=== PATIENT | female | born 2000 | race Caucasian/White ===

== ENCOUNTER 2020-02-21 21:24 | Emergency (ER) | payer BC ==
[2020-02-21] MEDS ORDERED: Ondansetron 4 MG Tab.DIS PO ONE (21:46)
[2020-02-21] MEDS ORDERED: Ketorolac 60 MG/2 ML SDV IM ONE (21:46)
--- NOTE | 2020-02-21 21:51 | EDM.PDOC ---
ED HPI GENERAL MEDICAL PROBLEM - General Chief Complaint: Genitourinary Problem Stated Complaint: POSS UTI AND BACK PAIN Time Seen by Provider: 02/21/20 21:28 Source of Information: Reports: Patient History Limitations: Reports: No Limitations - History of Present Illness INITIAL COMMENTS - FREE TEXT/NARRATIVE: Patient is a 19-year-old female who presents with complaints of right-sided back pain, nausea, and frequency of urination. Patient states approximately 1 month ago she was treated for urinary tract infection. At the time of that diagnosis she did have burning with urination, however that is since resolved. Patient is not sure what antibiotic she was treated with at that time. Patient states that she is been voiding frequently for the past month. She does have a history of chronic back pain from playing sports. States that she can normally get the back pain to go away with a hot shower. Tonight she developed back pain around 6 PM. Pain did not improve with a hot shower. About an hour ago she is developed some nausea states that she has vomited a couple times. She has not had any fever or chills. Denies any blood in her urine. Right Lower Back Pain Score (Numeric/FACES): 8 - Related Data Allergies Allergy/AdvReac Type Severity Reaction Status Date / Time No Known Allergies Allergy Verified 02/21/20 21:38 Home Meds: Home Meds Cefdinir [Omnicef] 300 mg PO BID 14 Days #27 cap 02/21/20 [Rx] Past Medical History - Past Health History Medical/Surgical History: Denies Medical/Surgical History - Past Surgical History HEENT Surgical History: Reports: Oral Surgery Social & Family History - Tobacco Use Smoking Status *Q: Never Smoker - Caffeine Use Caffeine Use: Reports: Coffee ED ROS GENERAL - Review of Systems Review Of Systems: Comprehensive ROS is negative, except as noted in HPI. ED EXAM, RENAL/ - Physical Exam Exam: See Below Exam Limited By: No Limitations General Appearance: Alert, WD/WN, No Apparent Distress Respiratory/Chest: No Respiratory Distress, Lungs Clear, Normal Breath Sounds, No Accessory Muscle Use, Chest Non-Tender Cardiovascular: Normal Peripheral Pulses, Regular Rate, Rhythm, No Edema, No Gallop, No JVD, No Murmur, No Rub GI/Abdominal: Normal Bowel Sounds, Soft, Non-Tender, No Organomegaly, No Distention, No Abnormal Bruit, No Mass Back Exam: Normal Inspection, Full Range of Motion, Other (Patient does have tenderness to palpation of the right low back directly above the iliac crest. Area is tender to light palpation. She has no CVA tenderness.). No: CVA Tenderness (L), CVA Tenderness (R) Neurological: Alert, Oriented, CN II-XII Intact, Normal Cognition, Normal Gait, Normal Reflexes, No Motor/Sensory Deficits Psychiatric: Normal Affect, Normal Mood Skin Exam: Warm, Dry, Intact, Normal Color, No Rash Course - Vital Signs Last Recorded V/S: Last Vital Signs Temp 97.1 F 02/21/20 21:35 Pulse 96 02/21/20 21:35 Resp 18 02/21/20 21:35 BP 122/80 02/21/20 21:35 Pulse Ox 98 02/21/20 21:35 - Orders/Labs/Meds Orders: Active Orders 24 hr Category Date Time Status Strain Urine [RC] ASDIRECTED Care 02/21/20 23:13 Active CULTURE URINE [RM] Stat Lab 02/21/20 21:02 Results Labs: Laboratory Tests 02/21/20 02/21/20 02/21/20 Range/Units 21:50 21:50 22:02 WBC 7.60 (3.98-10.04) K/mm3 RBC 4.89 (3.98-5.22) M/mm3 Hgb 13.4 (11.2-15.7) gm/dl Hct 39.8 (34.1-44.9) % MCV 81.4 (79.4-94.8) fl MCH 27.4 (25.6-32.2) pg MCHC 33.7 (32.2-35.5) g/dl RDW Std Deviation 38.2 (36.4-46.3) fL Plt Count 283 (182-369) K/mm3 MPV 10.3 (9.4-12.3) fl Neut % (Auto) 46.5 (34.0-71.1) % Lymph % (Auto) 43.4 (19.3-51.7) % Morrison % (Auto) 7.2 (4.7-12.5) % Eos % (Auto) 2.5 (0.7-5.8) Baso % (Auto) 0.4 (0.1-1.2) % Neut # (Auto) 3.53 (1.56-6.13) K/mm3 Lymph # (Auto) 3.30 (1.18-3.74) K/mm3 Morrison # (Auto) 0.55 H (0.24-0.36) K/mm3 Eos # (Auto) 0.19 (0.04-0.36) K/mm3 Baso # (Auto) 0.03 (0.01-0.08) K/mm3 Sodium 139 (136-145) mEq/L Potassium 3.9 (3.5-5.1) mEq/L Chloride 105 (98-107) mEq/L Carbon Dioxide 23 (21-32) mEq/L Anion Gap 14.9 (5-15) BUN 15 (7-18) mg/dL Creatinine 0.9 (0.55-1.02) mg/dL Est Cr Clr Drug Dosing 71.62 mL/min Estimated GFR (MDRD) > 60 (>60) mL/min BUN/Creatinine Ratio 16.7 (14-18) Glucose 97 (74-106) mg/dL Calcium 8.7 (8.5-10.1) mg/dL Total Bilirubin 0.3 (0.2-1.0) mg/dL AST 17 (15-37) U/L ALT 31 (14-59) U/L Alkaline Phosphatase 65 (46-116) U/L Total Protein 7.4 (6.4-8.2) g/dl Albumin 4.1 (3.4-5.0) g/dl Globulin 3.3 gm/dL Albumin/Globulin Ratio 1.2 (1-2) Urine Color Yellow (Yellow) Urine Appearance Slt cloudy H (Clear) Urine pH 6.5 (5.0-8.0) Ur Specific [place] > or = 1.030 (1.005-1.030) Urine Protein Negative (Negative) Urine Glucose (UA) Negative (Negative) Urine Ketones Negative (Negative) Urine Occult Blood 2+ H (Negative) Urine Nitrite Negative (Negative) Urine Bilirubin Negative (Negative) Urine Urobilinogen 0.2 (0.2-1.0) Ur Leukocyte Esterase Trace H (Negative) Urine RBC 5-10 H (0-5) /hpf Urine WBC 20-30 H (0-5) /hpf Ur Squamous Epith Cells 10-20 H (0-5) /hpf Urine Bacteria Many H (FEW) /hpf Urine Mucus Moderate H (FEW) /hpf Urine HCG, Qual (NEGATIVE) 02/21/20 Range/Units 22:02 WBC (3.98-10.04) K/mm3 RBC (3.98-5.22) M/mm3 Hgb (11.2-15.7) gm/dl Hct (34.1-44.9) % MCV (79.4-94.8) fl MCH (25.6-32.2) pg MCHC (32.2-35.5) g/dl RDW Std Deviation (36.4-46.3) fL Plt Count (182-369) K/mm3 MPV (9.4-12.3) fl Neut % (Auto) (34.0-71.1) % Lymph % (Auto) (19.3-51.7) % Morrison % (Auto) (4.7-12.5) % Eos % (Auto) (0.7-5.8) Baso % (Auto) (0.1-1.2) % Neut # (Auto) (1.56-6.13) K/mm3 Lymph # (Auto) (1.18-3.74) K/mm3 Morrison # (Auto) (0.24-0.36) K/mm3 Eos # (Auto) (0.04-0.36) K/mm3 Baso # (Auto) (0.01-0.08) K/mm3 Sodium (136-145) mEq/L Potassium (3.5-5.1) mEq/L Chloride (98-107) mEq/L Carbon Dioxide (21-32) mEq/L Anion Gap (5-15) BUN (7-18) mg/dL Creatinine (0.55-1.02) mg/dL Est Cr Clr Drug Dosing mL/min Estimated GFR (MDRD) (>60) mL/min BUN/Creatinine Ratio (14-18) Glucose (74-106) mg/dL Calcium (8.5-10.1) mg/dL Total Bilirubin (0.2-1.0) mg/dL AST (15-37) U/L ALT (14-59) U/L Alkaline Phosphatase (46-116) U/L Total Protein (6.4-8.2) g/dl Albumin (3.4-5.0) g/dl Globulin gm/dL Albumin/Globulin Ratio (1-2) Urine Color (Yellow) Urine Appearance (Clear) Urine pH (5.0-8.0) Ur Specific [place] (1.005-1.030) Urine Protein (Negative) Urine Glucose (UA) (Negative) Urine Ketones (Negative) Urine Occult Blood (Negative) Urine Nitrite (Negative) Urine Bilirubin (Negative) Urine Urobilinogen (0.2-1.0) Ur Leukocyte Esterase (Negative) Urine RBC (0-5) /hpf Urine WBC (0-5) /hpf Ur Squamous Epith Cells (0-5) /hpf Urine Bacteria (FEW) /hpf Urine Mucus (FEW) /hpf Urine HCG, Qual Negative (NEGATIVE) Meds: Medications Discontinued Medications Generic Name Dose Route Start Last Admin Trade Name Freq PRN Reason Stop Dose Admin Cefdinir 300 mg 02/21/20 23:13 02/21/20 23:24 Omnicef PO 02/21/20 23:14 300 mg ONETIME ONE Administration Ketorolac Tromethamine 60 mg 02/21/20 21:46 02/21/20 21:54 Toradol IM 02/21/20 21:47 60 mg ONETIME ONE Administration Ondansetron HCl 4 mg 02/21/20 21:46 02/21/20 21:54 Zofran Odt PO 02/21/20 21:47 4 mg ONETIME ONE Administration - Re-Assessments/Exams Free Text/Narrative Re-Assessment/Exam: 02/21/20 21:50 On exam, patient has no CVA tenderness. Her pain is quite low in her right back near the iliac crest. Pain is present to even light palpation. I have ordered a CBC, CMP, and urinalysis. We will give a injection of Toradol, as well as Zofran for nausea. 02/21/20 22:33 Patient's hematology was grossly unremarkable. Urinalysis does show 2+ occult blood, trace leukocyte esterase, 5-10 RBCs, 20-30 WBCs, many bacteria. Patient states that she has been having some light spotting. She is on an IUD and does not get normal periods. She describes that her pain does "kind of wr which raises the possibility of a kidney stone. Urine was negative. We will do a's noncontrast CT to rule out kidney stone. 02/21/20 23:14 CT of the abdomen pelvis does show a 1 mm x 2 mm calculus in the right distal ureter just above the level of the bladder. Since patient has a kidney stone in addition to a urinary tract infection, I did call and speak with the urologist on-call at [facility] and Phillip Correia, Dr. Workman. He recommended that since patient's blood work is normal, she has been afebrile, vital signs are stable, and the stone is very close to passing into the bladder , that we can attempt outpatient treatment. He recommended Omnicef 300 mg twice a day for 2 weeks. He also recommended that she be rescanned in 4 weeks to ensure the stone has passed. This outpatient treatment is with the understanding that if anything should worsen such as fever, chills, worsening of the nausea, or vomiting that she get to a urologist immediately. I discussed this with the patient and emphasized the importance of follow-up if symptoms should worsen. Discussed that if she should develop fever, chills, worsening pain, or worsening vomiting, she should return to the ER with the understanding that she would need to be sent to [facility] to see urology. She understands this plan and is in agreement. We will start her on Omnicef [address] [facility]. I will send a prescription for the remaining doses to [facility]. Prescription for pain and nausea medication was offered, but pt declined. Patient was provided with a list of clinic providers in the number to call tomorrow to schedule an ER follow-up with repeat UA for next week. Discharge instructions as documented. Departure - Departure Time of Disposition: 23:18 Disposition: Home, Self-Care 01 Condition: Fair Clinical Impression: UTI, Urinary tract infectious disease, Kidney stone - Discharge Information *PRESCRIPTION DRUG MONITORING PROGRAM REVIEWED*: No *COPY OF PRESCRIPTION DRUG MONITORING REPORT IN PATIENT OLGA LIDIA: No Prescriptions: Cefdinir [Omnicef] 300 mg PO BID 14 Days #27 cap Instructions: Kidney Stones, [id number], Urinary Tract Infection, Adult Referrals: PCP,None [Primary Care Provider] - Forms: ED Department Discharge, ED Return to Work/School Form Additional Instructions: You were seen in the emergency department today for right-sided back pain, nausea, and frequency of urination. Your work-up included blood work, urinalysis, and a CT of your abdomen pelvis. Your blood work was found to be completely normal. Urinalysis was positive for blood as well as signs of infection. CT scan of the abdomen and pelvis did show a 1 mm x 2 mm kidney stone in your right ureter near the level of your bladder. Your case was discussed with urologist, Dr. Workman. As we discussed, we will treat as an outpatient at this time with antibiotics for 2 weeks. This is with the understanding that if anything should worsen, such as you start developing a fever, chills, worsening pain, nausea, or vomiting, you return to the emergency department immediately for follow-up with urology. I would recommend that you establish care with a primary care provider and do an ER follow-up sometime next week. You have been sent home with a urine strainer. Strain your urine each time you go. If you are able to capture the stone, recommend that you bring the stone to your appointment with a primary care provider to have it sent to pathology. If you are not able to capture the stone by straining your urine, you would need a repeat CT done in 4 months to reevaluate. If you develop any new or worsening symptoms of concern, please do not hesitate to return to the emergency department. Sepsis Event Note - Evaluation Sepsis Screening Result: No Definite Risk - Focused Exam Date Exam was Performed: 02/22/20 Time Exam was Performed: 15:43 - My Orders Last 24 Hours: My Active Orders 02/21/20 21:02 CULTURE URINE [RM] Stat 02/21/20 23:13 Strain Urine [RC] ASDIRECTED - Assessment/Plan Last 24 Hours: My Active Orders 02/21/20 21:02 CULTURE URINE [RM] Stat 02/21/20 23:13 Strain Urine [RC] ASDIRECTED
[2020-02-21] MEDS ORDERED: Cefdinir 300 MG Cap PO ONE (23:13)
--- NOTE | 2020-02-22 08:31 | CT ---
CT abdomen and pelvis Technique: Multiple axial sections were obtained from the top of the liver inferiorly through the pubic symphysis. Intravenous and oral contrast not utilized. Study was performed as a ureteral stone protocol. Findings: Mildly prominent right ureter is seen. Collecting system of the right kidney is also mildly dilated. These findings are because spine approximate 4 mm obstructing stone within the distal right ureter located slightly proximal to the UVJ. No additional ureteral stone is seen. No renal calculi are seen. Visualized lung bases show nothing acute. Noncontrast appearance of the liver shows no focal abnormality. Spleen appears within normal limits. Adrenal glands show no nodule. Pancreas is within normal limits. Gallbladder contains no calcified gallstones. Aorta shows no aneurysm. No retroperitoneal adenopathy or mesenteric abnormalities are seen. Appendix is seen and is normal in size. No pelvic mass or adenopathy is seen. IUD is present within the uterus. Bone window settings were reviewed which shows no acute osseous finding. Impression: 1. Dilated right-sided collecting system and right ureter caused by a 4 mm obstructing stone within the distal right ureter slightly proximal to the UVJ. 2. IUD and other normal findings as noted above. Diagnostic code #3 This report was dictated in MDT I agree with preliminary report from [facility], finalized on 02/21/20, 11:51 PM Central Daylight Time
== END 2020-02-21 23:32 | disposition home or self-care (01) ==
LOC: JD.ED 21:24
DX: N39.0 Urinary tract infection, site not specified (principal); N20.0 Calculus of kidney; Z79.899 Other long term (current) drug therapy
CPT/HCPCS: 36415; 74176; 80053; 81001; 81025; 85025; 87086; 87088; 87186; 96372; 99284; A9270; J1885; 99283